=== PATIENT | male | born 1990 | race Caucasian/White ===

== ENCOUNTER 2016-07-15 12:46 | Emergency (ER) | payer OTHER ==
[~2016-07-15] VITALS: Ht 182.9 cm; Wt 86.0 kg
[2016-07-15 13:17] VITALS: BP 133/94; PULSE 69; RESP 16; TEMP 98; O2SAT 100
[2016-07-15] MEDS ORDERED: TETANUS/DIPHTHERIA TOXOID ADULT 0.5 ML VIAL IM ONE (14:30)
[2016-07-15] MEDS ORDERED: GELATIN 12 MM/7 MM FOAM TOPICAL ONE ×2 (15:00→16:00)
--- NOTE | 2016-07-15 15:07 | PD ---
HPI Chief Complaint: Laceration/Skin Injury Time Seen by Provider: 14:20 Travel History International Travel<30 days: No Contact w/Intl Traveler<30days: No Traveled to known affect area: No History of Present Illness HPI Patient is a 26-year-old male presenting to emergency evaluation of a laceration to his left second finger. Patient was cutting food at home when he cut himself. Patient is not up-to-date with tetanus vaccination. He states the pain is an 8 out of 10 and describes it as throbbing. Denies any numbness or tingling in his extremities. He denies any other injury at this time. PFSH Past Medical History Medical History: Denies Significant Hx Tetanus Vaccination: Unknown Influenza Vaccination: No Past Surgical History Tonsillectomy: Yes Social History Alcohol Use: Yes (Socially) Tobacco Use: Yes (1/2 PPD) Substance Use: Yes (Marijuana) Allergies-Medications (Allergen,Severity, Reaction): Coded Allergies: No Known Allergies (Unverified , 07/15/16) Reported Meds & Prescriptions Reported Meds & Active Scripts Active Percocet (Oxycodone-Acetaminophen) 5-325 mg Tab 1 Tab PO Q4H PRN Review of Systems Except as stated in HPI: all other systems reviewed are Neg Musculoskeletal: Positive: Pain Skin: Positive Other (laceration) Physical Exam Narrative GENERAL: Well-nourished, well-developed patient. SKIN: Warm and dry. Left second finger has complete skin avulsion to the tip, there is no bony involvement. Nail bed is intact. Left third finger has a 0.5 cm laceration to the medial aspect just adjacent to the nailbed, there is no nailbed involvement. Wound is superficial. HEAD: Normocephalic. EYES: No scleral icterus. No injection or drainage. NECK: Supple, trachea midline. No JVD or lymphadenopathy. CARDIOVASCULAR: Regular rate and rhythm without murmurs, gallops, or rubs. RESPIRATORY: Breath sounds equal bilaterally. No accessory muscle use. GASTROINTESTINAL: Abdomen soft, non-tender, nondistended. MUSCULOSKELETAL: No cyanosis, or edema. Full range of motion in all fingers in the left hand, positive radial pulse, brisk less than 3 second capillary refill. BACK: Nontender without obvious deformity. No CVA tenderness. Data Data Last Documented VS Vital Signs Date Time Temp Pulse Resp B/P Pulse Ox O2 Delivery O2 Flow Rate FiO2 07/15/16 13:17 98.0 69 16 133/94 100 Orders Tetanus/Diphtheria Tox Adult (Tetanus/Di (07/15/16 14:30) Gelatin 12 Mm/7 Mm Top (Gelfoam 12 Mm/7 (07/15/16 15:00) Gelatin 12 Mm/7 Mm Top (Gelfoam 12 Mm/7 (07/15/16 16:00) MDM Medical Decision Making Medical Screen Exam Complete: Yes Emergency Medical Condition: Yes Interpretation(s) Vital Signs Date Time Temp Pulse Resp B/P Pulse Ox O2 Delivery O2 Flow Rate FiO2 07/15/16 13:17 98.0 69 16 133/94 100 Differential Diagnosis Partial fingertip avulsion versus complete fingertip avulsion versus open fracture versus laceration versus other Narrative Course Patient is a 26-year-old male presenting to the emergency department for evaluation of a laceration to his left second and third fingertips. Patient's tetanus vaccination was updated today. Patient is neurovascularly intact. Patient's a full fingertip avulsion. My attending physician attempted to cauterize the bleeding with an electrocautery tool, then Gelfoam was utilized over the skin avulsion, pressure was held for 10 minutes. Bleeding was controlled. Sterile dressing applied. Laceration to the third finger is superficial, dressing was applied after wound was thoroughly cleaned. Patient was provided with a prescription for pain medication. He was educated on wound care as well as how to stop the bleeding should it start again. He was advised to return to emergency department if he was not controlled. Patient verbalized understanding of these structures. Patient is stable for discharge. Procedures Procedure Narrative LACERATION LOCATION: [-] LENGTH: [-] NUMBER OF STITCHES/KIRAN: [-] REPAIR: The area of the laceration was prepped with Betadine and sterilely draped. The laceration was infiltrated with [-]. The wound was copiously irrigated and explored without evidence of foreign body, tendon injury or neurovascular injury. The wound was closed using [-]. This was a [-] layer repair. A sterile dressing was applied. The patient was advised to keep the dressing clean and dry. Patient tolerated the procedure well. Diagnosis Primary Impression: Avulsion of skin of finger Qualified Code: S61.209A - Avulsion of skin of finger, initial encounter Referrals: Primary Care Physician Patient Instructions: General Instructions, Skin Avulsion (ED) Additional Instructions: Keep dressing in place for 24 hours Removed carefully to prevent rebleeding Do not drive or operate heavy machinery while taking narcotic pain medication Return to emergency department for any new or worsening symptoms If bleeding does start again hold pressure for 10 minutes. Med/Other Pt SpecificInfo: Prescription(s) given Scripts Oxycodone-Acetaminophen (Percocet)5-325 mg Tab1 Tab PO Q4H PRN (PAIN) #10 TAB Ref 0 Prov:Evelyn Mills DO 07/15/16 Disposition: 01 DISCHARGE HOME Condition: Stable Thania Quiros Jul 15, 2016 15:07
[2016-07-15] MEDS ORDERED: PERC5TAB12 PO (15:47)
== END 2016-07-15 16:00 | disposition home or self-care (01) ==
LOC: PHEFT 12:46
DX: S61.209A Unspecified open wound of unspecified finger without damage to nail, initial encounter (principal); F17.210 Nicotine dependence, cigarettes, uncomplicated; F12.90 Cannabis use, unspecified, uncomplicated; W26.0XXA Contact with knife, initial encounter; Y93.G3 Activity, cooking and baking; Y92.000 Kitchen of unspecified non-institutional (private) residence as the place of occurrence of the external cause; Z23 Encounter for immunization
CPT/HCPCS: 12001; 90471; 90714